=== PATIENT | female | born 1940 | race Caucasian/White ===

== ENCOUNTER 2016-04-04 21:32 | Emergency (ER) | payer MEDICARE, OTHER ==
[~2016-04-04] VITALS: Ht 154.9 cm; Wt 49.1 kg
[2016-04-04 21:37] VITALS: TEMP 97.1
[2016-04-04] MEDS ORDERED: ASPIRIN 81M81 MG/TA2 PO (22:20)
[2016-04-04] MEDS ORDERED: BENADRYL25 M2 PO (22:23)
[2016-04-04] MEDS ORDERED: FLONASE NASAL S16 GM NS (22:29)
[2016-04-04] MEDS ORDERED: NAPHCON A OP (22:37)
[2016-04-04] MEDS ORDERED: CELEXA10 MG PO (22:38)
[2016-04-04] MEDS ORDERED: KLONOPIN 0.5MG0.5 MG PO (22:39)
[2016-04-04] MEDS ORDERED: LIPITOR20 MG PO (22:39)
[2016-04-04] MEDS ORDERED: MIRALAX 255 GM255 GM PO (22:42)
[2016-04-04] MEDS ORDERED: PREMARIN 0.60.625 M1 PO (22:52)
[2016-04-04] MEDS ORDERED: VOLTAREN GEL 1%1 TU TP (22:53)
[2016-04-04] MEDS ORDERED: TOPROL XL 25MG25 MG PO (22:53)
[2016-04-04] MEDS ORDERED: PREDNISONE20 MG PO (23:32)
[2016-04-05 00:05] VITALS: BP 150/74; PULSE 69
== END 2016-04-05 00:05 | disposition home or self-care (01) ==
LOC: COL.ER 21:32
DX: T78.3XXA Angioneurotic edema, initial encounter (principal)
CPT/HCPCS: J0171; J2930